=== PATIENT | female | born 1995 | race Caucasian/White ===

== ENCOUNTER 2023-08-04 07:53 | Inpatient (IN) ==
[2023-08-04] MEDS ORDERED: LIDOCAINE 1% LOCAL 20 ML VIAL INFIL PRN (08:50)
[2023-08-04] MEDS ORDERED: OXYTOCIN 30 UNITS/NSS 30 UNITS/500 ML BAG IV PRN ×2 (08:50)
[2023-08-04] MEDS ORDERED: PENICILLIN GK 6 MU in DEXTROSE 5% 250 ML IV STA (08:50)
--- NOTE | 2023-08-04 08:54 | History & Physical Report ---
Date of Service August 04, 2023 Assessment & Plan (1) Encounter for induction of labor: (2) Carrier of group B Streptococcus: (3) Ovarian cyst: Plan: reeval cyst pp. Plan admit, labs, iv, esteban placed, start pit and pcn , plan arom when able. Admission and Anticipated Discharge Date Admission Date: August 04, 2023 History of Present Illness Chief Complaint: induction Primary Care Provider: NO PCP 27yo at 40+wks ega for postdates induction. She denies rom, vb. +FM. No ctx. PNC c/b 1. GBS pos 2. Ovarian/adnexal cyst, to be followed pp PNL rh pos, ri, gbs pos OBH: g1 GYNH: nl paps, no stds Allergies Allergy/AdvReac Type Severity Reaction Status Date / Time No Known Allergies Allergy Verified 08/03/23 15:17 Home Medications Medication Instructions Recorded Confirmed Type clindamycin-benzoyl peroxide topical 12/24/22 08/03/23 History docosahexaenoic acid [ DHA] PO 05/27/23 08/03/23 History Patient History Medical History (Updated 08/04/23 @ 08:56 by Annie Lawrence MD, FACOG) Acne Varicella vaccination Surgical History S/P colonoscopy S/P wisdom tooth extraction Family History (Updated 12/24/22 @ 15:09 by Avani Trevizo) Uncle Colorectal cancer Denies family history of Ovarian cancer Breast cancer Social History (Updated 12/24/22 @ 15:11 by Avani Trevizo) Smoking Status: Never smoker Do You Dip or Chew Tobacco: No; Hx Alcohol Use: No Hx Substance Use: No Beliefs That Will Affect Care: None marital status: marital status details: Temo Lundberg (29) [phone] Current Living Situation: Spouse Current Living Situation Comment: lives with spouse, dog current occupational status: employed 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 Other Information That Helps Us Care for You: No Feels Safe at Home: Yes Safety Concerns: Feels Safe At This Time Assistive Devices: None Review of Systems as per Subjective / HPI Physical Exam Constitutional: WD/WN, vitals as above Respiratory: normal respiratory effort, lungs clear to auscultation Cardiovascular: Rate/Rhythm: regular rate and regular rhythm Gastrointestinal (Abdomen): soft gravid nt efw 7-8# Musculoskeletal: no edema nontender calves Neurologic: grossly normal Psychiatric: A+Ox3, euthymic affect Genitourinary: Manual OB Exam: + cervical dilation (1+), + cervical effacement 50% and + station (mid med) -2 OB Exam Monitor Tracing: + external FHT monitor used, + external uterine monitor used, + category I and + normal FHT variability PROCEDURE: sse cx visualized, grasped on ant lip with ring forcep, esteban through os and balloon inflated with 40cc sterile water. Spec removed, esteban taped to leg. pt louie well. Results & Data Vital Signs (Past 12 Hours) Vital Signs Temp Pulse Resp BP 08/04/23 08:05 98.2 F 20 08/04/23 08:00 91 H 113/60 Coding Level of Care Code None Diagnoses Encounter for induction of labor Z34.90 Carrier of group B Streptococcus Z22.330 Ovarian cyst N83.209
[2023-08-04] MEDS: LACTATED RINGER'S 1,000 ML IV PRN ×3 (09:07→17:45)
[2023-08-04 09:36] LABS: Hematocrit (blood only) 34.6 % (37.0-47.0); Hemoglobin 11.8 g/dl (12.0-16.0); Mean Corpuscular Hemoglobin 30.6 pg (25.0-34.0); Mean Corpuscular Hgb Conc 34.1 g/dL (32.0-36.0); Mean Corpuscular Volume 89.6 fL (80.0-100.0); Mean Platelet Volume 10.8 fL (9.4-12.4); Platelet Count 137 K/uL (130-400); RDW Coefficient of Variation 13.3 % (11.5-14.5); RDW Standard Deviation 43.3 fL (36.4-46.3); Red Blood Count 3.86 M/uL (4.20-5.40); White Blood Count 10.75 K/ul (4.8-10.8)
[2023-08-04] MEDS: PENICILLIN GK 3 MU in DEXTROSE 5% 100 ML IV PRN ×3 (13:30→22:01)
--- NOTE | 2023-08-04 13:53 | Labor Progress Brief Note ---
Date of Service August 04, 2023 Subjective having some ctx, no real pain issues. Assessment & Plan (1) Encounter for induction of labor: (2) Carrier of group B Streptococcus: Plan continue with pitocin to develop labor pattern, arom should help. fhts categ 1. getting pcn for gbs pos status. Admission and Anticipated Discharge Date Admission Date: August 04, 2023 Physical Exam Constitutional: WD/WN, vitals as above Genitourinary: Manual OB Exam: + cervical dilation 4 cm, + cervical effacement 50%, + station -2 and + amniotic fluid (arom) clear OB Exam Monitor Tracing: + external FHT monitor used, + external uterine monitor used (q3-4 ), + category I and + normal FHT variability Results & Data Vital Signs (Past 12 Hours) Vital Signs Temp Pulse Resp BP 08/04/23 13:12 76 08/04/23 13:12 113/70 08/04/23 12:02 18 08/04/23 12:02 18 08/04/23 12:02 82 08/04/23 12:02 95/53 L 08/04/23 10:58 18 08/04/23 10:58 98.1 F 18 08/04/23 10:58 73 08/04/23 10:58 102/70 08/04/23 09:43 18 08/04/23 09:43 18 08/04/23 09:43 80 08/04/23 09:43 100/61 08/04/23 08:05 98.2 F 20 08/04/23 08:00 91 H 113/60 Coding Level of Care Code None Diagnoses Encounter for induction of labor Z34.90 Carrier of group B Streptococcus Z22.330
[2023-08-04] MEDS ORDERED: fentaNYL citrate PF 100 MCG/2 ML VIAL ONE (16:10)
[2023-08-04] MEDS ORDERED: fentANYL 2 MCG/ML BUPIVacaine 0.125%-NSS 100ML BAG ONE (16:11)
[2023-08-04] MEDS ORDERED: BUPIVACAINE 0.25% PF 30 ML VIAL ONE (16:11)
[2023-08-04] MEDS ORDERED: LIDOCAINE 2%/EPINEPHRINE 1:200,000 20 ML PF ONE (16:11)
[2023-08-04] MEDS ORDERED: SODIUM CHLORIDE 0.9% PF INJ 10 ML VIAL ONE (16:11)
[2023-08-04] MEDS ORDERED: ePHEDrine sulfate 50 MG/ML AMP ONE (16:11)
--- NOTE | 2023-08-04 16:30 | Anesthesiology Consultation ---
Date of Service August 04, 2023 Assessment & Plan Chart Review Chart Review: Patient NOT seen in Pre Admission Testing and Acceptable Risk for Labor Epidural Consults Requested none ASA ASA2 Proposed Anesthesia Anesthesia Type: Labor Epidural Risk / Benefits Reviewed With: PT / POA / Parent / Guardian, Accepts Plan and Informed Consent Obtained History Height/Weight Height: 5 ft 4 in Weight: 91.172 kg Allergies Allergy/AdvReac Type Severity Reaction Status Date / Time No Known Allergies Allergy Verified 08/04/23 09:48 Medications Active Medications Generic Name Dose Route Start Last Admin Trade Name Freq PRN Reason Stop Dose Admin Oxytocin 30 units in 500 mls @ 15 mls/hr 08/04/23 08:50 08/04/23 15:00 Pitocin 30 Units/Nss IV 08/06/23 08:49 0.9 units/hr .Q24H PRN 15 mls/hr Labor Induction/Augmentation Titration Protocol 0.9 UNITS/HR Lactated Ringer's 1,000 mls @ 125 mls/hr 08/04/23 08:50 08/04/23 16:06 Lr IV 08/06/23 08:49 999 mls/hr .Q8H PRN Administration L&D Protocol Protocol Penicillin G Potassium 3 mu/ 106 mls @ 100 mls/hr 08/04/23 11:50 08/04/23 14:42 Dextrose IV 08/14/23 11:49 Infused Q4H PRN Infusion GBS(+) Until Delivery NPO Date Last Intake of Fluids: 08/04/23 Time Last Intake of Fluids: 14:00 Date Last Intake of Solids: 08/04/23 Time Last Intake of Solids: 06:00 Past Medical History Medical History Acne Varicella vaccination Exercise / Class Metabolic Activity II 4-5 Yardwork/Stairs/Walk up hill Past Family History Family History Uncle Colorectal cancer Denies family history of Ovarian cancer Breast cancer Past Surgical History Surgical History S/P colonoscopy S/P wisdom tooth extraction Past Anesthesia History No Hx of Anesthesia Complications and No Family Hx of Anesthesia Complications History of PONV No Hx of PONV and No Hx of Motion Sickness Social History Smoking Status: Never smoker Do You Dip or Chew Tobacco: No Hx Alcohol Use: No Hx Substance Use: No substance use type: does not use Review of Systems ROS Unobtainable: All systems reviewed & are unremarkable except as noted in HPI & below Physical Exam Vital Signs Last Vital Signs Temp 36.8 C 08/04/23 15:02 Pulse 71 08/04/23 16:23 Resp 18 08/04/23 15:02 BP 108/65 08/04/23 16:04 Pulse Ox 99 08/04/23 16:23 ENMT Mouth: no TMJ abnormality Thyromental Distance: > or= 3.5 Finger Breadths Mallampati Class: II Neck normal visual inspection and trachea midline; neck extension not limited Respiratory normal respiratory effort Auscultation: lungs clear to auscultation bilaterally Cardiovascular Rate/Rhythm: regular rate and regular rhythm Heart Sounds: no murmur Musculoskeletal Spine: normal cervical ROM Extremities: full ROM of extremities Neurologic moves all extremities Psychiatric Orientation: alert and oriented x 3 Testing Laboratory Results 08/04/23 09:11
[2023-08-04] MEDS ORDERED: fentaNYL citrate PF 100 MCG/2 ML VIAL EPI PRN (16:53)
[2023-08-04] MEDS ORDERED: LIDOCAINE 2% MPF LOCAL 5 ML VIAL EPI PRN (16:53)
[2023-08-04] MEDS ORDERED: SODIUM CHLORIDE 0.9% PF INJ 10 ML VIAL EPI STA (16:53)
[2023-08-04] MEDS ORDERED: fentANYL 2 MCG/ML BUPIVacaine 0.125%-NSS 100ML BAG EPI PRN (16:53)
[2023-08-04] MEDS ORDERED: NALOXONE HCL 1 MG in SODIUM CHLORIDE 0.9% 1,000 ML IV PRN (16:53)
[2023-08-04] MEDS ORDERED: BUPIVACAINE 0.25% PF 30 ML VIAL EPI PRN (16:53)
[2023-08-04] MEDS ORDERED: ROPIVACAINE 0.5% PF 5 MG/ML 20 ML VIAL EPI PRN (16:53)
[2023-08-04] MEDS ORDERED: LIDOCAINE 2%/EPINEPHRINE 1:200,000 20 ML PF EPI STA (16:53)
[2023-08-04] MEDS ORDERED: ePHEDrine sulfate 50 MG/ML AMP IV PRN (16:53)
[2023-08-04] MEDS ORDERED: NALBUPHINE HCL 5 MG in SYRINGE 0 ML IV PRN (16:53)
[2023-08-04] MEDS ORDERED: diphenhydrAMINE 50 MG/ML VIAL IV PRN (16:53)
[2023-08-04] MEDS ORDERED: BUPIVACAINE 0.25% PF 30 ML VIAL EPI STA (16:53)
[2023-08-04] MEDS ORDERED: SODIUM CHLORIDE 0.9% PF INJ 10 ML VIAL EPI PRN (16:53)
[2023-08-04] MEDS ORDERED: fentaNYL citrate PF 100 MCG/2 ML VIAL EPI STA (16:53)
[2023-08-04] MEDS ORDERED: NALOXONE HCL 0.4 MG/1 ML VIAL/CARP IV PRN (16:53)
--- NOTE | 2023-08-04 18:00 | Labor Progress Brief Note ---
Date of Service August 04, 2023 Subjective comfortable with epidural. did need ephedrine due to bp Assessment & Plan (1) Encounter for induction of labor: (2) Carrier of group B Streptococcus: Plan will cont with pit, pcn, making good change. fhts categ 1. Admission and Anticipated Discharge Date Admission Date: August 04, 2023 Physical Exam Constitutional: WD/WN, vitals as above Genitourinary: Manual OB Exam: + cervical dilation 6 cm, + cervical effacement (75%) and + station -2 OB Exam Monitor Tracing: + external FHT monitor used, + external uterine monitor used (q3 pit at 15), + category I and + normal FHT variability Results & Data Vital Signs (Past 12 Hours) Vital Signs Temp Pulse Resp BP Pulse Ox 08/04/23 17:53 100 08/04/23 17:53 80 08/04/23 17:52 78 08/04/23 17:52 95/52 L 08/04/23 17:48 100 08/04/23 17:48 73 08/04/23 17:45 78 08/04/23 17:45 92/50 L 08/04/23 17:43 99 08/04/23 17:43 74 08/04/23 17:42 77 08/04/23 17:42 83/49 L 08/04/23 17:40 80 08/04/23 17:40 83/46 L 08/04/23 17:39 75 08/04/23 17:39 89/49 L 08/04/23 17:38 100 08/04/23 17:38 74 08/04/23 17:33 100 08/04/23 17:33 68 08/04/23 17:28 99 08/04/23 17:28 79 08/04/23 17:23 100 08/04/23 17:23 72 08/04/23 17:21 74 08/04/23 17:21 107/58 L 08/04/23 17:18 99 08/04/23 17:18 81 08/04/23 17:13 100 08/04/23 17:13 77 08/04/23 17:08 100 08/04/23 17:08 79 08/04/23 17:03 100 08/04/23 17:03 81 08/04/23 17:02 16 08/04/23 17:02 98.2 F 16 08/04/23 17:02 83 08/04/23 17:02 103/58 L 08/04/23 16:58 100 08/04/23 16:58 71 08/04/23 16:57 76 08/04/23 16:57 112/57 L 08/04/23 16:53 100 08/04/23 16:53 81 08/04/23 16:51 78 08/04/23 16:51 113/59 L 08/04/23 16:49 75 08/04/23 16:49 113/60 08/04/23 16:48 100 08/04/23 16:48 72 08/04/23 16:47 74 08/04/23 16:47 114/59 L 08/04/23 16:44 71 08/04/23 16:44 115/57 L 08/04/23 16:43 100 08/04/23 16:43 78 08/04/23 16:38 100 08/04/23 16:38 86 08/04/23 16:33 100 08/04/23 16:33 79 08/04/23 16:28 100 08/04/23 16:28 74 08/04/23 16:23 99 08/04/23 16:23 71 08/04/23 16:18 100 08/04/23 16:18 94 H 08/04/23 16:04 69 08/04/23 16:04 108/65 08/04/23 15:02 18 08/04/23 15:02 98.2 F 18 08/04/23 15:02 78 08/04/23 15:02 107/64 08/04/23 14:34 16 08/04/23 14:34 16 08/04/23 14:34 75 08/04/23 14:34 113/66 08/04/23 13:12 76 08/04/23 13:12 113/70 08/04/23 12:02 18 08/04/23 12:02 18 08/04/23 12:02 82 08/04/23 12:02 95/53 L 08/04/23 10:58 18 08/04/23 10:58 98.1 F 18 08/04/23 10:58 73 08/04/23 10:58 102/70 08/04/23 09:43 18 08/04/23 09:43 18 08/04/23 09:43 80 08/04/23 09:43 100/61 08/04/23 08:05 98.2 F 20 08/04/23 08:00 91 H 113/60 Coding Level of Care Code None Diagnoses Encounter for induction of labor Z34.90 Carrier of group B Streptococcus Z22.330
[2023-08-04] MEDS: CALCIUM CARBONATE 500 MG CHEWABLE TAB PO PRN (19:19)
--- NOTE | 2023-08-05 00:46 | Labor Progress Brief Note ---
Date of Service August 05, 2023 Subjective no pain with ctx. Assessment & Plan (1) Encounter for induction of labor: (2) Carrier of group B Streptococcus: Plan will begin 2nd stage. fhts categ 1. Admission and Anticipated Discharge Date Admission Date: August 04, 2023 Physical Exam Constitutional: WD/WN, vitals as above Genitourinary: Manual OB Exam: + cervical dilation 10 cm, + cervical effacement 100% and + station + 3 OB Exam Monitor Tracing: + external FHT monitor used, + external uterine monitor used (q2-3), + category I and + normal FHT variability Results & Data Vital Signs (Past 12 Hours) Vital Signs Temp Pulse Resp BP Pulse Ox 08/05/23 00:38 95 H 100 08/05/23 00:36 91 H 112/65 08/05/23 00:34 87 89 L 08/05/23 00:33 92 H 99 08/05/23 00:28 90 100 08/05/23 00:23 92 H 100 08/05/23 00:22 92 H 109/67 08/05/23 00:18 90 100 08/05/23 00:13 90 100 08/05/23 00:08 92 H 100 08/05/23 00:06 88 107/59 L 08/05/23 00:03 88 100 08/04/23 23:58 100 08/04/23 23:58 92 H 08/04/23 23:53 100 08/04/23 23:53 84 08/04/23 23:51 90 08/04/23 23:51 108/60 08/04/23 23:48 100 08/04/23 23:48 94 H 08/04/23 23:43 100 08/04/23 23:43 81 08/04/23 23:38 99 08/04/23 23:38 86 08/04/23 23:37 83 08/04/23 23:37 98/57 L 08/04/23 23:33 100 08/04/23 23:33 100 H 08/04/23 23:28 100 08/04/23 23:28 98 H 08/04/23 23:23 99 08/04/23 23:23 83 08/04/23 23:21 91 H 08/04/23 23:21 96/54 L 08/04/23 23:18 100 08/04/23 23:18 80 08/04/23 23:13 100 08/04/23 23:13 91 H 08/04/23 23:08 100 08/04/23 23:08 86 08/04/23 23:07 96 H 08/04/23 23:07 84/53 L 08/04/23 23:05 98.4 F 08/04/23 23:03 100 08/04/23 23:03 83 08/04/23 22:58 100 08/04/23 22:58 88 08/04/23 22:53 100 08/04/23 22:53 93 H 08/04/23 22:52 93 H 08/04/23 22:52 98/57 L 08/04/23 22:48 99 08/04/23 22:48 86 08/04/23 22:43 99 08/04/23 22:43 83 08/04/23 22:38 99 08/04/23 22:38 87 08/04/23 22:36 93 H 08/04/23 22:36 94/50 L 08/04/23 22:33 99 08/04/23 22:33 81 08/04/23 22:28 100 08/04/23 22:28 78 08/04/23 22:23 100 08/04/23 22:23 86 08/04/23 22:21 88 08/04/23 22:21 101/55 L 08/04/23 22:18 100 08/04/23 22:18 87 08/04/23 22:13 100 08/04/23 22:13 88 08/04/23 22:08 100 08/04/23 22:08 90 08/04/23 22:06 16 08/04/23 22:06 16 08/04/23 22:06 88 08/04/23 22:06 117/64 08/04/23 22:03 100 08/04/23 22:03 88 08/04/23 21:58 100 08/04/23 21:58 92 H 08/04/23 21:53 100 08/04/23 21:53 89 08/04/23 21:51 88 08/04/23 21:51 103/61 08/04/23 21:48 99 08/04/23 21:48 84 08/04/23 21:43 100 08/04/23 21:43 92 H 08/04/23 21:38 100 08/04/23 21:38 88 08/04/23 21:37 118 H 08/04/23 21:37 100/58 L 08/04/23 21:33 100 08/04/23 21:33 101 H 08/04/23 21:28 99 08/04/23 21:28 92 H 08/04/23 21:23 100 08/04/23 21:23 83 08/04/23 21:21 94 H 08/04/23 21:21 100/61 08/04/23 21:18 100 08/04/23 21:18 100 H 08/04/23 21:13 100 08/04/23 21:13 92 H 08/04/23 21:08 100 08/04/23 21:08 81 08/04/23 21:07 78 08/04/23 21:07 101/63 08/04/23 21:03 100 08/04/23 21:03 94 H 08/04/23 21:01 18 08/04/23 21:01 98.4 F 18 08/04/23 20:58 99 08/04/23 20:58 81 08/04/23 20:53 100 08/04/23 20:53 80 08/04/23 20:51 96 H 08/04/23 20:51 94/55 L 08/04/23 20:48 100 08/04/23 20:48 88 08/04/23 20:43 100 08/04/23 20:43 85 08/04/23 20:38 100 08/04/23 20:38 91 H 08/04/23 20:36 86 08/04/23 20:36 102/59 L 08/04/23 20:33 100 08/04/23 20:33 83 08/04/23 20:28 100 08/04/23 20:28 87 08/04/23 20:23 100 08/04/23 20:23 81 08/04/23 20:21 79 08/04/23 20:21 102/61 08/04/23 20:18 100 08/04/23 20:18 87 08/04/23 20:13 100 08/04/23 20:13 87 08/04/23 20:08 100 08/04/23 20:08 103 H 08/04/23 20:08 92 08/04/23 20:08 101 H 08/04/23 20:08 111/67 08/04/23 20:03 100 08/04/23 20:03 82 08/04/23 19:58 100 08/04/23 19:58 75 08/04/23 19:53 100 08/04/23 19:53 72 08/04/23 19:51 83 08/04/23 19:51 112/62 08/04/23 19:48 100 08/04/23 19:48 74 08/04/23 19:43 100 08/04/23 19:43 82 08/04/23 19:38 100 08/04/23 19:38 77 08/04/23 19:36 77 08/04/23 19:36 113/63 08/04/23 19:33 100 08/04/23 19:33 72 08/04/23 19:28 100 08/04/23 19:28 72 08/04/23 19:23 100 08/04/23 19:23 70 08/04/23 19:22 77 08/04/23 19:22 123/72 08/04/23 19:18 100 08/04/23 19:18 87 08/04/23 19:13 100 08/04/23 19:13 69 08/04/23 19:08 100 08/04/23 19:08 88 08/04/23 19:06 18 08/04/23 19:06 98.6 F 18 08/04/23 19:06 68 08/04/23 19:06 106/63 08/04/23 19:03 100 08/04/23 19:03 75 08/04/23 18:58 100 08/04/23 18:58 74 08/04/23 18:53 100 08/04/23 18:53 87 08/04/23 18:53 103/61 08/04/23 18:48 99 08/04/23 18:48 84 08/04/23 18:43 100 08/04/23 18:43 75 08/04/23 18:38 99 08/04/23 18:38 87 08/04/23 18:36 78 08/04/23 18:36 96/53 L 08/04/23 18:33 100 08/04/23 18:33 79 08/04/23 18:28 100 08/04/23 18:28 85 08/04/23 18:23 100 08/04/23 18:23 83 08/04/23 18:21 82 08/04/23 18:21 98/54 L 08/04/23 18:18 100 08/04/23 18:18 84 08/04/23 18:13 100 08/04/23 18:13 86 08/04/23 18:08 100 08/04/23 18:08 78 08/04/23 18:06 81 08/04/23 18:06 86/49 L 08/04/23 18:03 100 08/04/23 18:03 82 08/04/23 17:58 100 08/04/23 17:58 81 08/04/23 17:53 100 08/04/23 17:53 80 08/04/23 17:52 78 08/04/23 17:52 95/52 L 08/04/23 17:48 100 08/04/23 17:48 73 08/04/23 17:45 78 08/04/23 17:45 92/50 L 08/04/23 17:43 99 08/04/23 17:43 74 08/04/23 17:42 77 08/04/23 17:42 83/49 L 08/04/23 17:40 80 08/04/23 17:40 83/46 L 08/04/23 17:39 75 08/04/23 17:39 89/49 L 08/04/23 17:38 100 08/04/23 17:38 74 08/04/23 17:33 100 08/04/23 17:33 68 08/04/23 17:28 99 08/04/23 17:28 79 08/04/23 17:23 100 08/04/23 17:23 72 08/04/23 17:21 74 08/04/23 17:21 107/58 L 08/04/23 17:18 99 08/04/23 17:18 81 08/04/23 17:13 100 08/04/23 17:13 77 08/04/23 17:08 100 08/04/23 17:08 79 08/04/23 17:03 100 08/04/23 17:03 81 08/04/23 17:02 16 08/04/23 17:02 98.2 F 16 08/04/23 17:02 83 08/04/23 17:02 103/58 L 08/04/23 16:58 100 08/04/23 16:58 71 08/04/23 16:57 76 08/04/23 16:57 112/57 L 08/04/23 16:53 100 08/04/23 16:53 81 08/04/23 16:51 78 08/04/23 16:51 113/59 L 08/04/23 16:49 75 08/04/23 16:49 113/60 08/04/23 16:48 100 08/04/23 16:48 72 08/04/23 16:47 74 08/04/23 16:47 114/59 L 08/04/23 16:44 71 08/04/23 16:44 115/57 L 08/04/23 16:43 100 08/04/23 16:43 78 08/04/23 16:38 100 08/04/23 16:38 86 08/04/23 16:33 100 08/04/23 16:33 79 08/04/23 16:28 100 08/04/23 16:28 74 08/04/23 16:23 99 08/04/23 16:23 71 08/04/23 16:18 100 08/04/23 16:18 94 H 08/04/23 16:04 69 08/04/23 16:04 108/65 08/04/23 15:02 18 08/04/23 15:02 98.2 F 18 08/04/23 15:02 78 08/04/23 15:02 107/64 08/04/23 14:34 16 08/04/23 14:34 16 08/04/23 14:34 75 08/04/23 14:34 113/66 08/04/23 13:12 76 08/04/23 13:12 113/70 Coding Level of Care Code None Diagnoses Encounter for induction of labor Z34.90 Carrier of group B Streptococcus Z22.330
[2023-08-05] MEDS: CALCIUM CARBONATE 500 MG CHEWABLE TAB PO PRN (00:52)
[2023-08-05] MEDS: LACTATED RINGER'S 1,000 ML IV PRN (01:54)
--- NOTE | 2023-08-05 03:09 | Delivery Summary ---
Vaginal Delivery Summary Date of Service August 05, 2023 Vaginal Delivery Summary The patient dilated to complete and pushed to deliver a viable female infant Apgars 8 and 9 via over intact perineum. Mouth and nose bulb suctioned at perineum. Shoulders and body delivered with ease. was vigorous and crying at . Cord clamped at 40 seconds of life and infant to maternal abdomen where the cord was then doubly clamped and cut. Placenta delivered spontaneously and intact, three-vessel cord. Hemostasis not achieved with dilute pitocin and uterine massage and drainage of the bladder for approximately 100 cc under sterile conditions. Therefore 800mcg rectal cytotec and methergine IM given. With further bimanual massage tone improved. Cervix and sulci intact. Vaginal laceration repaired in routine fashion with 3-0 vicryl. EBL 500 cc. Mother and baby stable in recovery. [facility] Vaginal Delivery Charge Delivery Type Details:
[2023-08-05] MEDS ORDERED: OXYTOCIN 20 UNITS/LR 1,002 ML IV SCH (03:15)
[2023-08-05] MEDS ORDERED: IBUPROFEN 600 MG TAB PO PRN (03:27)
[2023-08-05] MEDS ORDERED: ACETAMINOPHEN 325 MG TAB PO PRN (03:27)
[2023-08-05] MEDS ORDERED: oxyCODONE/ACETAMINOPHEN 5mg/325mg TAB PO PRN (03:27)
[2023-08-05] MEDS ORDERED: miSOPROStoL 200 MCG TAB PR ONE (03:27)
[2023-08-05] MEDS ORDERED: HYDROCORTISONE ACETATE 25 MG SUPP PR PRN (03:27)
[2023-08-05] MEDS ORDERED: BENZOCAINE 20% SPRY 85 APPLN/85 GM CAN EXT PRN (03:27)
[2023-08-05] MEDS ORDERED: DIPHTHERIA/TETANUS/PERTUSSIS Vaccine (Tdap, Age 7+yrs) 0.5mL SYR/VL IM ONE (03:27)
[2023-08-05] MEDS ORDERED: METHYLERGONOVINE MALEATE 0.2 MG/ML AMP IM ONE (03:27)
[2023-08-05] MEDS ORDERED: OXYTOCIN 30 UNITS/NSS 30 UNITS/500 ML BAG IV PRN (03:27)
--- NOTE | 2023-08-05 04:54 | Anesthesia Procedure Note ---
Date of Service August 05, 2023 Anesthesia Post Epidural Note Vital Signs Vital Signs: Temp Pulse Resp BP Pulse Ox 36.8 C 80 18 125/73 100 08/05/23 02:54 08/05/23 04:51 08/05/23 01:01 08/05/23 04:51 08/05/23 03:24 Notes Mental Status: alert / awake / arousable and participated in evaluation Nausea / Vomiting: adequately controlled Pain: adequately controlled Airway Patency, RR, SpO2: stable & adequate BP & HR: stable & adequate Hydration State: stable & adequate Neuraxial Anesthesia: was administered and sensory block is resolving Anesthetic Complications: no major complications apparent Epidural: Removed without complications and With tip intact
[2023-08-05] MEDS: PRENATAL VITAMIN 1 TAB PO SCH ×2 (09:32→09:47)
[2023-08-05] MEDS: DOCUSATE SODIUM 100 MG CAP PO SCH ×2 (09:32→09:47)
[2023-08-05] MEDS ORDERED: ACETAMINOPHEN SUSP 325 MG/10.15 ML UDC PO PRN (09:54)
[2023-08-05] MEDS ORDERED: Nursing to Pharmacy Communication SCH (10:00)
[2023-08-05] MEDS: DOCUSATE SODIUM SYRUP 100 MG/10 ML UDC PO SCH (10:48)
--- NOTE | 2023-08-06 04:56 | Obstetrical Progress Note ---
Date of Service <Castro DO Enoch - Last Filed: 08/06/23 06:08> August 06, 2023 Assessment & Plan <Castro KendallDO - Last Filed: 08/06/23 06:08> (1) care following vaginal delivery: Plan 27 year old , PPD#1: Eating well, voiding well, ambulating well Vitals reviewed, WNL Pain well controlled without analgesics Routine care - OOB, ambulation, diet progression as tolerated Will have 6 week follow up with Dr. Lawrence <Diana Coker MD - Last Filed: 08/06/23 08:08> (1) care following vaginal delivery: Subjective <Castro Kendall DO - Last Filed: 08/06/23 06:08> Ambulation: ambulating normally Voiding: no voiding problems Passing Gas:: Yes Diet Tolerance:: regular diet Lochia:: Small Feeding Type:: breast feeding pain well controlled without analgesics Review of Systems -Denies fever or chills -Denies dyspnea, chest pain, or palpitations -Denies dysuria -Denies headache or changes in vision Physical Exam <Castro Kendall DO - Last Filed: 08/06/23 06:08> General: Alert and oriented. No acute distress Cardiac: Regular rate and rhythm, no murmurs appreciated Respiratory: Lungs clear to auscultation bilaterally, No increased work of breathing Abdominal: Soft, non-tender, non-distended. Bowel sounds present. Uterus: Uterine fundus firm, palpable below umbilicus Extremities: No lower extremity edema, calves non-tender bilaterally Results & Data <Castro Kendall DO - Last Filed: 08/06/23 06:08> Vital Signs (Past 12 Hours) Vital Signs Temp Pulse Resp BP O2 Del Method 08/06/23 01:30 36.7 C 82 16 111/68 Room Air 08/05/23 20:30 36.7 C 82 16 105/68 Room Air Supervising Physician <Diana Coker MD - Last Filed: 08/06/23 08:08> Co-Signing Physician Notes Resident Physician Supervision Note: I interviewed and examined the patient. Discussed with Dr. Kendall and agree with findings and plan as documented in the note. Any exceptions or clarifications are listed here: PP1 s/p , doing well. VSS, exam benign and wnl. Desires dc home Documented By: Diana Coker MD Resident Activity Tracking <Castro Kendall DO - Last Filed: 08/06/23 06:08> Resident Involvement: Resident Care Provided Care Provided: OB Delivery
[2023-08-06 06:58] LABS: Hematocrit (blood only) 35.8 % (37.0-47.0)
[2023-08-06] MEDS: PRENATAL VITAMIN 1 TAB PO SCH (08:57)
[2023-08-06] MEDS: DOCUSATE SODIUM SYRUP 100 MG/10 ML UDC PO SCH (08:59)
[2023-08-07] MEDS ORDERED: bisacodyL 10 MG SUPP PR PRN (03:27)
--- NOTE | 2023-08-09 12:54 | Coding Query ---
CODING QUERY To promote full compliance with coding requirements relating to patient care, provider participation is requested in all cases of extrusion die repair manager uncertainty. Please assist us with the question(s) below: Coding Question(s): Please clarify the degree of the vaginal laceration. there is no degree, its a vaginal laceration. i don't know what you even mean. Physician's Response(s): Thank you Helen Jenkins Principal Diagnosis: "that condition established after study, to be chiefly responsible for occasioning the admission of the patient to the hospital for care." Co-Existing Principal Diagnosis: "when two or more diagnoses equally meet the criteria for principal diagnosis as determined by the circumstances of admission, diagnostic work up, and/or therapy provided, and the Alphabetic Index, Tabular List, or another coding guideline does not provide sequencing direction, any one of the diagnoses may be sequenced first." "When the physician has documented what appears to be a current diagnosis in the body of the record, but has not included the diagnosis in the final diagnostic statement, the physician should be asked whether the diagnosis should be added." (Source [facility] 2 QTR90. p3-4) KRISTOPHER
== END 2023-08-06 14:40 | disposition home or self-care (01) | DRG 806 ==
LOC: 4S1 07:53 → 4E2 08-05 06:19

== ENCOUNTER 2025-08-27 07:41 | Inpatient (IN) ==
[2025-08-27] MEDS ORDERED: OXYTOCIN 30 UNITS/NSS 30 UNITS/500 ML BAG IV PRN (07:50)
[2025-08-27] MEDS ORDERED: LIDOCAINE 1% LOCAL 20 ML VIAL INFIL PRN (07:50)
[2025-08-27 08:26] LABS: Hematocrit (blood only) 32.0 % (37.0-47.0); Hemoglobin 11.0 g/dL (12.0-16.0); Mean Corpuscular Hemoglobin 29.2 pg (25.0-34.0); Mean Corpuscular Volume 84.9 fL (80.0-100.0); Platelet Count 152 K/uL (130-400); RDW Standard Deviation 43.2 fL (36.4-46.3); Red Blood Count 3.77 M/uL (4.20-5.40); White Blood Count 12.88 K/ul (4.8-10.8)
[2025-08-27] MEDS: LACTATED RINGER'S 1,000 ML IV PRN (08:45)
[2025-08-27] MEDS: PENICILLIN GK 6 MU in DEXTROSE 5% 250 ML IV STA (08:45)
[2025-08-27] MEDS: OXYTOCIN 30 UNITS/NSS 30 UNITS/500 ML BAG IV PRN ×2 (09:13→21:12)
--- NOTE | 2025-08-27 09:17 | History & Physical Report ---
Date of Service August 27, 2025 Assessment & Plan (1) Encounter for induction of labor: (2) Post-dates : (3) Group beta Strep positive: Plan admit, iv, labs. fhts categ 1. pcn for gbs. start pit now. Admission and Anticipated Discharge Date Admission Date: August 27, 2025 History of Present Illness Chief Complaint: induction Primary Care Provider: NO PCP 29 yo at 40+wks egkim presents to LD for planned induction for postdates. She had esteban last pm and fell out about 10pm. No rom, no vb. +FM. PNC c/b 1. GBS pos 2. Postdates PNL rhpos, ri, gbs pos OBH: x 1 GYNH: nl paps Allergies Allergy/AdvReac Type Severity Reaction Status Date / Time strawberry Allergy Unknown Itching Verified 08/26/25 19:50 Home Medications Medication Instructions Recorded Confirmed Type prenat.vits,ranjana,bab-yqlb-uwcih 1 tab PO DAILY 02/07/25 08/27/25 History Patient History Medical History (Updated 08/27/25 @ 09:21 by Annie Lawrence MD, FACOG) Carrier of group B Streptococcus Acne Varicella vaccination Surgical History History of unilateral salpingectomy right S/P colonoscopy S/P wisdom tooth extraction Family History Uncle Colorectal cancer Denies family history of Ovarian cancer Breast cancer Social History Smoking Status: Never smoker Second Hand Exposure: No; Do You Dip or Chew Tobacco: No; Tobacco Cessation Education Requested by Patient: No Hx Alcohol Use: No Hx Substance Use: No Preferred Language: Dutch Communication Ability: Effective 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 Required: No Beliefs That Will Affect Care: None marital status: marital status details: Temo Lundberg (31) [phone] Current Living Situation: Spouse Current Living Situation Comment: lives with spouse, daughter, 1 dog current occupational status: employed 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 Other Information That Helps Us Care for You: No Feels Safe at Home: Yes Safety Concerns: Feels Safe At This Time Assistive Devices: None Review of Systems as per Subjective / HPI Physical Exam Constitutional: WD/WN, vitals as above Respiratory: normal respiratory effort, lungs clear to auscultation Cardiovascular: Rate/Rhythm: regular rate and regular rhythm Gastrointestinal (Abdomen): Inspection/Auscultation: abdomen normal to inspection Percussion/Palpation: abdomen soft (gravid nt) Musculoskeletal: nt calves no edema Neurologic: grossly normal Psychiatric: A+Ox3, euthymic affect Genitourinary: Manual OB Exam: + cervical dilation 3 cm, + cervical effacement 50% and + station -2 OB Exam Monitor Tracing: + external FHT monitor used, + external uterine monitor used, + category I and + normal FHT variability Results & Data Vital Signs (Past 12 Hours) Vital Signs Temp Pulse Resp BP O2 Del Method 08/27/25 08:06 98.1 F 18 Room Air 08/27/25 08:06 98.1 F 18 08/27/25 07:55 86 116/73 Coding Level of Care Code None Diagnoses Encounter for induction of labor Z34.90 Post-dates O48.0 Group beta Strep positive B95.1
[2025-08-27] MEDS: LIDOCAINE 2%/EPINEPHRINE 1:200,000 20 ML PF ONE (11:52)
[2025-08-27] MEDS: BUPIVACAINE 0.25% PF 30 ML VIAL ONE (11:52)
[2025-08-27] MEDS: SODIUM CHLORIDE 0.9% PF INJ 10 ML VIAL ONE (11:52)
[2025-08-27] MEDS: fentANYL 2 MCG/ML BUPIVacaine 0.125%-NSS 100ML BAG ONE (11:53)
[2025-08-27] MEDS: PENICILLIN GK 3 MU in DEXTROSE 5% 100 ML IV PRN (12:28)
--- NOTE | 2025-08-27 12:49 | Anesthesiology Consultation ---
Date of Service August 27, 2025 Assessment & Plan Chart Review Chart Review: Acceptable Risk for Labor Epidural Consults Requested none ASA ASA2 Proposed Anesthesia Anesthesia Type: Labor Epidural Risk / Benefits Reviewed With: PT / POA / Parent / Guardian, Accepts Plan and Informed Consent Obtained History Height/Weight Height: 5 ft 3 in Weight: 91.172 kg Allergies Allergy/AdvReac Type Severity Reaction Status Date / Time strawberry Allergy Unknown Itching Verified 08/26/25 19:50 Medications Home Medications Medication Instructions Recorded Confirmed Last Taken prenat.vits,ranjana,jnh-gukc-fteiy 1 tab PO DAILY 02/07/25 08/27/25 08/26/25 Active Medications Generic Name Dose Route Start Last Admin Trade Name Freq PRN Reason Stop Dose Admin Oxytocin 30 units in 500 mls @ 9 mls/hr 08/27/25 07:50 08/27/25 12:15 Pitocin 30 Units/Nss IV 08/29/25 07:49 0.54 units/hr .Q24H PRN 9 mls/hr Labor Induction/Augmentation Titration Protocol 0.54 UNITS/HR Lactated Ringer's 1,000 mls @ 125 mls/hr 08/27/25 07:50 08/27/25 12:28 Lr IV 08/29/25 07:49 0 mls/hr .Q8H PRN Infusion L&D Protocol Protocol Penicillin G Potassium 3 mu/ 106 mls @ 100 mls/hr 08/27/25 10:50 08/27/25 12:28 Dextrose IV 09/06/25 10:49 100 mls/hr Q4H PRN Administration GBS(+) Until Delivery Past Medical History Medical History (Updated 08/27/25 @ 09:21 by Annie Lawrence MD, FACOG) Carrier of group B Streptococcus Acne Varicella vaccination Past Family History Family History Uncle Colorectal cancer Denies family history of Ovarian cancer Breast cancer Past Surgical History Surgical History History of unilateral salpingectomy right S/P colonoscopy S/P wisdom tooth extraction Social History Smoking Status: Never smoker Do You Dip or Chew Tobacco: No Hx Alcohol Use: No Hx Substance Use: No substance use type: does not use Physical Exam Vital Signs Last Vital Signs Temp 36.5 C 08/27/25 12:30 Pulse 78 08/27/25 12:45 Resp 18 08/27/25 12:30 BP 97/52 L 08/27/25 12:45 Pulse Ox 100 08/27/25 12:43 O2 Del Method Room Air 08/27/25 08:06 Constitutional no acute distress ENMT Thyromental Distance: > or= 3.5 Finger Breadths Mallampati Class: II Neck normal visual inspection Respiratory normal respiratory effort Cardiovascular Rate/Rhythm: regular rate Musculoskeletal Spine: lumbar spine normal to inspection and + scoliosis; no lumbar spinal tenderness Extremities: extremities normal to inspection Neurologic moves all extremities Motor/Sensory: no sensory deficit Psychiatric Orientation: alert and oriented x 3 Testing Laboratory Results 08/27/25 08:11 Blood Type B Positive 08/27/25 08:11 Antibody Screen NEGATIVE 08/27/25 08:11
--- NOTE | 2025-08-27 12:53 | Labor Progress Brief Note ---
Date of Service August 27, 2025 Subjective pt comfortable with epidural. Assessment & Plan (1) Encounter for induction of labor: (2) Post-dates : (3) Group beta Strep positive: Plan will see how arom helps labor pattern. pcn for gbs, cont pit. fhts categ 1. Admission and Anticipated Discharge Date Admission Date: August 27, 2025 Physical Exam Constitutional: WD/WN, vitals as above Genitourinary: Manual OB Exam: + cervical dilation 4 cm, + cervical effacement 50%, + station -2 and + amniotic fluid (arom) clear OB Exam Monitor Tracing: + external FHT monitor used, + external uterine monitor used (q3 pit at 9), + category I and + normal FHT variability Results & Data Vital Signs (Past 12 Hours) Vital Signs Temp Pulse Resp BP Pulse Ox O2 Del Method 08/27/25 12:45 78 97/52 L 08/27/25 12:43 80 100 08/27/25 12:38 70 100 08/27/25 12:33 65 100 08/27/25 12:30 18 08/27/25 12:30 97.7 F 18 08/27/25 12:28 100 08/27/25 12:28 64 08/27/25 12:28 117 H 102/68 08/27/25 12:23 91 H 100 08/27/25 12:18 68 100 08/27/25 12:13 100 08/27/25 12:13 74 08/27/25 12:13 84 106/67 08/27/25 12:08 90 100 08/27/25 12:03 76 100 08/27/25 12:00 18 08/27/25 12:00 18 08/27/25 11:58 78 100 08/27/25 11:57 75 103/63 08/27/25 11:55 83 101/59 L 08/27/25 11:53 100 08/27/25 11:53 71 08/27/25 11:53 72 104/59 L 08/27/25 11:52 67 106/58 L 08/27/25 11:48 82 100 08/27/25 11:47 75 106/62 08/27/25 11:45 74 107/64 08/27/25 11:43 76 108/68 100 08/27/25 11:38 80 100 08/27/25 11:33 75 100 08/27/25 11:32 77 90 08/27/25 11:28 77 98 08/27/25 11:23 74 100 08/27/25 10:46 75 129/70 08/27/25 09:43 80 106/62 08/27/25 08:06 98.1 F 18 Room Air 08/27/25 08:06 98.1 F 18 08/27/25 07:55 86 116/73 Coding Level of Care Code None Diagnoses Encounter for induction of labor Z34.90 Post-dates O48.0 Group beta Strep positive B95.1
[2025-08-27] MEDS ORDERED: CALCIUM CARBONATE 500 MG CHEWABLE TAB PO PRN (14:13)
[2025-08-27] MEDS: FAMOTIDINE 20MG IV PUSH 20 MG/5 ML SYR IV PRN (14:41)
--- NOTE | 2025-08-27 14:56 | Labor Progress Brief Note ---
Date of Service August 27, 2025 Subjective having acid reflux, waiting for pepcid to kick in no pressure Assessment & Plan (1) Encounter for induction of labor: (2) Post-dates : (3) Group beta Strep positive: Plan good cx change. fhts categ 1. c/w pit and pcn. Admission and Anticipated Discharge Date Admission Date: August 27, 2025 Physical Exam Constitutional: WD/WN, vitals as above Genitourinary: Manual OB Exam: + cervical dilation 6 cm, + cervical effacement (75%) and + station -2 OB Exam Monitor Tracing: + external FHT monitor used, + external uterine monitor used (q2-3 pit at 15), + category I and + normal FHT variability Results & Data Vital Signs (Past 12 Hours) Vital Signs Temp Pulse Resp BP Pulse Ox O2 Del Method 08/27/25 14:49 63 99 08/27/25 14:44 100 08/27/25 14:44 71 08/27/25 14:44 70 103/62 08/27/25 14:39 72 100 08/27/25 14:34 73 100 08/27/25 14:30 18 08/27/25 14:30 18 08/27/25 14:29 81 100 08/27/25 14:28 70 90/53 L 08/27/25 14:24 67 100 08/27/25 14:19 76 100 08/27/25 14:14 57 L 100 08/27/25 14:13 65 89/52 L 08/27/25 14:09 66 100 08/27/25 14:04 63 100 08/27/25 14:03 76 90 08/27/25 14:00 18 08/27/25 14:00 97.9 F 18 08/27/25 13:59 98 H 100 08/27/25 13:58 82 92/61 L 08/27/25 13:54 67 100 08/27/25 13:49 63 100 08/27/25 13:44 59 L 100 08/27/25 13:43 67 95/63 L 08/27/25 13:39 70 100 08/27/25 13:34 61 100 08/27/25 13:30 18 08/27/25 13:30 18 08/27/25 13:29 100 08/27/25 13:29 65 08/27/25 13:29 63 94/62 L 08/27/25 13:23 66 100 08/27/25 13:18 69 100 08/27/25 13:13 70 93/53 L 100 08/27/25 13:08 69 100 08/27/25 13:03 74 100 08/27/25 13:00 18 08/27/25 13:00 18 08/27/25 12:59 72 95/54 L 08/27/25 12:58 75 99 08/27/25 12:53 66 100 08/27/25 12:48 72 100 08/27/25 12:45 78 97/52 L 08/27/25 12:43 80 100 08/27/25 12:38 70 100 08/27/25 12:33 65 100 08/27/25 12:30 18 08/27/25 12:30 97.7 F 18 08/27/25 12:28 100 08/27/25 12:28 64 08/27/25 12:28 117 H 102/68 08/27/25 12:23 91 H 100 08/27/25 12:18 68 100 08/27/25 12:13 100 08/27/25 12:13 74 08/27/25 12:13 84 106/67 08/27/25 12:08 90 100 08/27/25 12:03 76 100 08/27/25 12:00 18 08/27/25 12:00 18 08/27/25 11:58 78 100 08/27/25 11:57 75 103/63 08/27/25 11:55 83 101/59 L 08/27/25 11:53 100 08/27/25 11:53 71 08/27/25 11:53 72 104/59 L 08/27/25 11:52 67 106/58 L 08/27/25 11:48 82 100 08/27/25 11:47 75 106/62 08/27/25 11:45 74 107/64 08/27/25 11:43 76 108/68 100 08/27/25 11:38 80 100 08/27/25 11:33 75 100 08/27/25 11:32 77 90 08/27/25 11:28 77 98 08/27/25 11:23 74 100 08/27/25 10:46 75 129/70 08/27/25 09:43 80 106/62 08/27/25 08:06 98.1 F 18 Room Air 08/27/25 08:06 98.1 F 18 08/27/25 07:55 86 116/73 Coding Level of Care Code None Diagnoses Encounter for induction of labor Z34.90 Post-dates O48.0 Group beta Strep positive B95.1
[2025-08-27] MEDS: ONDANSETRON INJ 2 MG/ML 2 ML VIAL IV PRN (15:08)
--- NOTE | 2025-08-27 17:20 | Delivery Summary ---
Vaginal Delivery Summary Date of Service August 27, 2025 Vaginal Delivery Summary The patient dilated to complete and pushed to deliver a viable female Apgars 8 and 9 via over intact perineum. Mouth and nose bulb suctioned at perineum. Shoulders and body delivered with ease. was vigorous and crying at . Cord clamped at 40 seconds of life and to maternal abdomen where the cord was then doubly clamped and cut. Done at this durga due to gushing of bright red blood from vagina. Placenta delivered spontaneously and intact, three-vessel cord. Hemostasis achieved with dilute pitocin and uterine massage and drainage of the bladder for approximately 200 cc under sterile conditions. Cervix and sulci intact. QBL 333cc. Mother and baby stable in recovery. [facility] Vaginal Delivery Charge Delivery Type Details:
[2025-08-27] MEDS ORDERED: IBUPROFEN 600 MG TAB PO PRN (17:26)
[2025-08-27] MEDS ORDERED: HYDROCORTISONE ACETATE 25 MG SUPP PR PRN (17:26)
[2025-08-27] MEDS ORDERED: ACETAMINOPHEN 325 MG TAB PO PRN (17:26)
[2025-08-27] MEDS ORDERED: BENZOCAINE 20% SPRY 85 APPLN/85 GM CAN EXT PRN (17:26)
[2025-08-27] MEDS: DIPHTHER/TETAN/PERTUS Vaccine (Tdap, Adol/Adult) 0.5mL IM ONE (17:30)
--- NOTE | 2025-08-27 20:48 | Anesthesia Procedure Note ---
Date of Service August 27, 2025 Anesthesia Post Epidural Note Vital Signs Vital Signs: Temp Pulse Resp BP Pulse Ox O2 Del Method 36.8 C 99 H 18 102/59 L 98 Room Air 08/27/25 16:00 08/27/25 19:21 08/27/25 17:00 08/27/25 19:21 08/27/25 17:09 08/27/25 08:06 Pain Intensity Lower Abdomen: Pain Intensity: 3 Notes Mental Status: alert / awake / arousable and participated in evaluation Nausea / Vomiting: adequately controlled Pain: adequately controlled Airway Patency, RR, SpO2: stable & adequate BP & HR: stable & adequate Hydration State: stable & adequate Neuraxial Anesthesia: was administered and sensory block is resolving Anesthetic Complications: no major complications apparent Epidural: Removed without complications and With tip intact
--- NOTE | 2025-08-27 21:08 | Communication Note ---
Date of Service: August 27, 2025 called by nursing re: qbl total now at 700+, most recent check with clots totaling 300+cc blood. vs reviewed. notes uterus firm at u and that pt currently trying to void. plan h/h now. start iv pit, and extra bags. if cannot void then straight cath now. monitor bleeding and update in 1hr before considering transfer to .
[2025-08-27] MEDS: METHYLERGONOVINE MALEATE 0.2 MG/ML AMP IM PRN (21:28)
[2025-08-27] MEDS ORDERED: SODIUM CHLORIDE 0.9% 100 ML IV PRN (21:46)
[2025-08-27 21:47] LABS: Hematocrit (blood only) 31.7 % (37.0-47.0); Hemoglobin 10.8 g/dL (12.0-16.0)
[2025-08-27] MEDS: OXYTOCIN 20 UNITS/LR 1,002 ML IV SCH (23:34)
[2025-08-28] MEDS: DOCUSATE SODIUM 100 MG CAP PO SCH (00:03)
[2025-08-28 06:14] LABS: Hematocrit (blood only) 31.2 % (37.0-47.0); Hemoglobin 10.5 g/dL (12.0-16.0)
--- NOTE | 2025-08-28 06:49 | Obstetrical Progress Note ---
Date of Service August 28, 2025 Assessment & Plan (1) care following vaginal delivery: (2) Carrier of group B Streptococcus: Plan 29 yo post- day 2 s/p . Fells well today. Vital signs stable Continue post- care Encourage ambulation and Pain controlled with ibuprofen Hgb stable Discharge home today, follow up with Dr. Lawrence in 6 weeks. Admission and Anticipated Discharge Date Admission Date: August 27, 2025 Supervising Physician Co-Signing Physician Notes Resident Physician Supervision Note: I interviewed and examined the patient. Discussed with Dr. Howard and agree with findings and plan as documented in the note. Any exceptions or clarifications are listed here: doing well, notes bleeding tapered and now voiding well. eating and ambulating without issue. baby, wants to go home later. exam cor rrr, lungs ctab, abd soft ff 1 above u, ext nt calves. PPD #1 s/p . hgb pending this am. routine care. dc home later today, instructions reviewed. rhpos, ri, . likely needs to void given fundal height, she will get up to do soon. Documented By: Annie Lawrence MD, FACOG Subjective 29 yo post- day 1 s/p . Ambulation: ambulating normally Voiding: no voiding problems Passing Gas:: Yes Diet Tolerance:: regular diet Lochia:: Small Feeding Type:: breast feeding Current Pain Level:Slight pain. Resting comfortably this AM in NAD. Denies MILLIGAN, CP, SOB, N/V/D, LE pain/swelling. Review of Systems Review of Systems: As per HPI. Physical Exam Physical Exam: General: patient resting comfortably, NAD, non-toxic in appearance, AA&O x 4, answers questions appropriately. Skin: warm, dry, intact HEENT: NC/AT, anicteric sclera, conjunctiva without injection, moist mucus membranes. Heart: +S1/S2, regular, no m/r/g Lungs: equal air entry bilaterally, no rales/rhonchi/wheezes Abd: +BS, soft, NT/ND, uterine fundus firm at umbilicus. Ext: warm, no clubbing/cyanosis or edema, Jacquelyn's neg. Results & Data Vital Signs (Past 12 Hours) Vital Signs Temp Pulse Pulse Resp BP BP Pulse Ox 12/31/25 03:35 36.3 C L 80 18 116/74 97 08/27/25 23:16 36.5 C 90 18 108/70 97 08/27/25 22:07 71 109/73 08/27/25 21:33 80 109/66 08/27/25 21:26 83 102/63 08/27/25 19:21 99 H 102/59 L 08/27/25 19:06 88 111/62 08/27/25 18:52 90 109/59 L O2 Del Method 08/28/25 03:35 Room Air 08/27/25 23:16 Room Air 08/27/25 22:07 08/27/25 21:33 08/27/25 21:26 08/27/25 19:21 08/27/25 19:06 08/27/25 18:52 Resident Activity Tracking Resident Involvement: Resident Care Provided Care Provided: Adult Hospital Medicine
[2025-08-28] MEDS ORDERED: PRENATAL VITAMIN 1 TAB PO SCH (08:00)
[2025-08-28] MEDS ORDERED: Nursing to Pharmacy Communication SCH ×2 (09:15→10:15)
[2025-08-28] MEDS ORDERED: ACETAMINOPHEN SUSP 325 MG/10.15 ML UDC PO PRN (09:18)
[2025-08-28] MEDS ORDERED: IBUPROFEN 200 MG/10 ML UDC PO PRN (09:19)
[2025-08-28] MEDS: DOCUSATE SODIUM SYRUP 100 MG/10 ML UDC PO STA (10:26)
[2025-08-28 15:39] VITALS: BP 100/67; PULSE 83; RESP 16; TEMP 97.5; O2SAT 95
[2025-08-28] MEDS ORDERED: DOCUSATE SODIUM SYRUP 100 MG/10 ML UDC PO SCH (21:00)
== END 2025-08-28 18:30 | disposition home or self-care (01) | DRG 806 ==
LOC: 4S1 07:41 → 4E2 23:10